=== PATIENT | female | born 1975 | race Caucasian/White ===

== ENCOUNTER 2020-12-27 16:01 | Emergency (ER) | payer OTHER ==
--- NOTE | 2020-12-27 16:26 | ED Physician Documentation ---
PD HPI UPPER EXT INJURY - Stated complaint Stated Complaint: RT FINGER INJ - Chief complaint Chief Complaint: Trauma Ext - History obtained from History obtained from: Patient - Additonal information Additional information: Right-handed woman had her right fourth finger pulled by the dog leash and now has deformity and moderate pain. No other injuries. Review of Systems Constitutional: reports: Reviewed and negative Nose: reports: Reviewed and negative Cardiac: reports: Reviewed and negative PD PAST MEDICAL HISTORY - Allergies Allergies/Adverse Reactions: Allergies Allergy/AdvReac Type Severity Reaction Status Date / Time gluten Allergy Unknown Verified 12/27/20 16:10 PD ED PE NORMAL - Vitals Vital signs reviewed: Yes - General General: Alert and oriented X 3, No acute distress - Extremities Extremities: Other (There is tenderness and a mild torsional deformity of the right fourth finger of the middle phalanx, she is moving it fairly well. NVI at the tip.) - Neuro Neuro: Alert and oriented X 3, Normal speech Results - Vitals Vitals: Vital Signs - 24 hr 12/27/20 12/27/20 16:07 17:16 Temperature 36.2 C L 36.5 C Heart Rate 96 88 Respiratory 14 16 Rate Blood Pressure 168/101 H 138/88 H O2 Saturation 96 98 Oxygen O2 Source Room air - Rads (name of study) R 4th finger xray Radiology: EMP read contemporaneously Procedures - Splint (location) R 4th finger Splint applied by: Physician Type of splint: Metal foam finger splint Other: Patient tolerated well, No complications, Neurovascular intact - Reduction Body part reduced: Right, Finger Fracture or dislocation: Fracture dislocation Anesthesia: Digital block (with 2ml 0.25% bupivacaine) PD MEDICAL DECISION MAKING - ED course ED course: 45-year-old woman presents with a right fourth finger fracture. Blocked and she did need a little bit of a torsional reduction and then placed in a splint. She declined prescription pain medication. Departure - Departure Disposition: 01 Home, Self Care Clinical Impression: Finger fracture, right Qualifiers: Encounter type: initial encounter Finger: ring finger Fracture type: closed Phalanx: middle Fracture alignment: nondisplaced Qualified Code(s): S62.654A - Nondisplaced fracture of middle phalanx of right ring finger, initial encounter for closed fracture Condition: Good Record reviewed to determine appropriate education?: Yes Instructions: ED Fx Finger Closed Follow-Up: Bolivar Andrew MD [Provider Admit Priv/Credential] - Comments: For the most part keep the splint on and dry, follow-up with orthopedics, call the number tomorrow for an appointment within a week or 2. Return for new or worsening symptoms. Tylenol or ibuprofen as needed for pain. Discharge Date/Time: 12/27/20 17:16
--- NOTE | 2020-12-27 17:13 | XRAY Report ---
PROCEDURE: Finger(s) RT INDICATIONS: R 4th finger inj TECHNIQUE: AP hand, 2 views of the fourth finger(s) acquired. COMPARISON: None FINDINGS: Bones: Mildly comminuted, nondisplaced shaft fracture of the middle phalanx of the fourth finger, whi ch does not appear to extend to the articular surface. No suspicious bony lesions. Soft tissues: No suspicious soft tissue calcifications. IMPRESSION: Mildly comminuted, nondisplaced shaft fracture of the middle phalanx of the fourth finger. Reviewed by: Blake Meléndez MD on 12/27/2020 5:11 PM PDT Approved by: Blake Meléndez MD on 12/27/2020 5:11 PM PDT Station ID: [id number]
[2020-12-27 17:18] VITALS: BP 138/88
== END 2020-12-27 17:16 | disposition home or self-care (01) ==
LOC: ED 16:01
DX: S62.654A Nondisplaced fracture of middle phalanx of right ring finger, initial encounter for closed fracture (principal); X50.1XXA Overexertion from prolonged static or awkward postures, initial encounter; Y93.K9 Activity, other involving animal care
CPT/HCPCS: 26755

== ENCOUNTER 2021-01-27 07:35 | Outpatient (CLI) | payer OTHER ==
--- NOTE | 2021-01-27 10:11 | XRAY Report ---
PROCEDURE: Hand 3 View RT INDICATIONS: FRACTURE OF MIDDLE PHALANX OF LEFT RING FINGER TECHNIQUE: 3 views of the hand(s) acquired. COMPARISON: 12/27/2020 FINDINGS: Bones: Comminuted fracture involving the fourth middle phalange is significant change in appearance a nd stable alignment compared to 12/27/2020. Soft tissues: No suspicious soft tissue calcifications. IMPRESSION: Comminuted fourth middle phalange fracture without significant change compared to 12/27/2020. Reviewed by: Nichole Irvin MD, PhD on 01/27/2021 10:10 AM PDT Approved by: Nichole Irvin MD, PhD on 01/27/2021 10:10 AM PDT Station ID: [id number]
== END 2021-01-27 07:36 | disposition home or self-care (01) ==
LOC: DI.N 07:35
PROVIDERS: ATTEND Orthopaedic Surgery
DX: S62.624D Displaced fracture of middle phalanx of right ring finger, subsequent encounter for fracture with routine healing (principal)